=== PATIENT | female | born 1935 | race Caucasian/White ===

== ENCOUNTER → 2018-01-30 | Outpatient (CLI) | payer MEDICARE ==
[~2018-01-30] MED LIST: BUPIVACAINE 0.25% ONE; EPINEPHRINE 1 MG/ML, 1ML ONE; INDOCYANINE GREEN 25 MG VIAL ONE; ONDA4TAB7 PO; OXYC-302 PO; QUIN5TAB13 PO
[2018-01-30 16:15] LABS: BASOPHILS # (AUTO) 0.02 x10^3/uL (0-0.1); BASOPHILS % (AUTO) 0 % (0-1); EOSINOPHILS # (AUTO) 0.06 x10^3/uL (0-0.4); EOSINOPHILS % (AUTO) 1 % (1-7); LYMPHOCYTES # (AUTO) 1.49 x10^3/uL (1-3.4); LYMPHOCYTES % (AUTO) 22 % (22-44); MD NO; MEAN CORPUSCULAR HEMOGLOBIN 33.5 pg (27.0-34.8); MEAN CORPUSCULAR HGB CONC 33.7 g/dL (32.4-35.8); MEAN CORPUSCULAR VOLUME 99.5 fL (80-100); MEAN PLATELET VOLUME 8.9 fL (7.4-10.4); MONOCYTES # (AUTO) 0.33 x10^3/uL (0.2-0.8); MONOCYTES % (AUTO) 5 % (2-9); NEUTROPHILS # (AUTO) 4.94 x10^3/uL (1.8-6.8); NEUTROPHILS % (AUTO) 72 % (42-75); PLATELET COUNT 248 x10^3/uL (130-400); RED BLOOD COUNT 3.61 x10^6/uL (3.82-5.3); RED CELL DISTRIBUTION WIDTH 12.9 % (9.6-15.2)
[2018-01-30 16:25] LABS: INTERNATIONAL NORMALIZED RATIO 0.94 (0.93-1.1); PROTHROMBIN TIME 9.8 Seconds (9.6-11.5)
[2018-01-30 16:26] LABS: ALANINE AMINOTRANSFERASE 23 U/L (12-78); ALBUMIN 3.9 g/dL (3.4-5.0); ANION GAP 11 mmol/L (5-15); CHLORIDE 108 mmol/L (98-107); CREATININE 1.75 mg/dL (0.55-1.02)
[2018-01-30 16:29] LABS: ALKALINE PHOSPHATASE 127 U/L (45-117); BILIRUBIN,TOTAL 0.4 mg/dL (0.2-1.0); TOTAL PROTEIN 7.4 g/dL (6.4-8.2)
== END | disposition home or self-care (01) ==
LOC: MERGE 14:47 → STAR 14:47
PROVIDERS: ATTEND Specialist
DX: Z01.818 Encounter for other preprocedural examination (principal); M41.84 Other forms of scoliosis, thoracic region
CPT/HCPCS: 36415; 71046; 80053; 85025; 85610; 85730; 86304; 93005

== ENCOUNTER 2018-02-05 07:33 | Inpatient (IN) | payer MEDICARE ==
[~2018-02-05] VITALS: Ht 160 cm; Wt 53.8 kg
[~2018-02-05 07:33] MED LIST changes: +HEPARIN 1,000 UNITS/ML, 10ML ONE; -INDOCYANINE GREEN 25 MG VIAL ONE; -ONDA4TAB7 PO; -OXYC-302 PO
[2018-02-05] MEDS ORDERED: LACTATED RINGERS 1,000 ML IV SCH (07:52)
[2018-02-05] MEDS ORDERED: ONDANSETRON ODT 8 MG PO ONE (08:00)
[2018-02-05] MEDS ORDERED: ACETAMINOPHEN 500 MG TABLET PO ONE (08:00)
[2018-02-05] MEDS ORDERED: CEFAZOLIN 1,000 MG ONE ×2 (08:30)
[2018-02-05] MEDS ORDERED: PROPOFOL 10 MG/ML, 20ML ONE (08:30)
[2018-02-05] MEDS ORDERED: MIDAZOLAM 1 MG/ML, 2ML ONE (08:30)
[2018-02-05] MEDS ORDERED: FENTANYL PF 100 MCG/2ML ONE (08:30)
[2018-02-05] MEDS ORDERED: ROCURONIUM 10MG/ML,5ML ONE (08:31)
[2018-02-05] MEDS ORDERED: SUCCINYLCHOLINE 20 MG/ML, 10ML ONE (08:31)
[2018-02-05] MEDS ORDERED: LIDOCAINE-MPF 2% ,5ML ONE ×2 (08:31)
[2018-02-05] MEDS ORDERED: DEXAMETHASONE 4 MG/ML, 1ML ONE ×2 (08:36)
[2018-02-05] MEDS ORDERED: MORPHINE SULFATE 4 MG/ML, 1ML IVPush PRN (13:00)
[2018-02-05] MEDS ORDERED: MIDAZOLAM 1 MG/ML, 2ML IV PRN (13:00)
[2018-02-05] MEDS ORDERED: hydrALAzine 20 MG/ML, 1ML IV PRN (13:00)
[2018-02-05] MEDS ORDERED: EPHEDRINE 50 MG/ML, 1ML IVPush PRN (13:00)
[2018-02-05] MEDS ORDERED: LABETALOL 5MG/ML, 20ML IV PRN (13:00)
[2018-02-05] MEDS ORDERED: METOPROLOL 1 MG/ML, 5ML IV PRN (13:00)
[2018-02-05] MEDS ORDERED: LORazepam 2 MG/ML, 1ML IVPush PRN (13:00)
[2018-02-05] MEDS ORDERED: FENTANYL PF 100 MCG/2ML IV PRN (13:00)
[2018-02-05] MEDS ORDERED: OXYcodone 5 MG/5 ML ORAL.SOL UDC PO PRN (13:00)
[2018-02-05] MEDS ORDERED: PROCHLORPERAZINE 5 MG/ML, 2ML IV PRN (13:00)
[2018-02-05] MEDS ORDERED: MEPERIDINE/PF 25MG/0.5ML IVPush PRN (13:00)
[2018-02-05] MEDS ORDERED: ALBUTEROL SULFATE 2.5 MG/3 ML NPPB PRN (13:00)
[2018-02-05] MEDS ORDERED: NEOSTIGMINE 1 MG/ML, 10ML ONE (13:09)
[2018-02-05] MEDS ORDERED: GLYCOPYRROLATE 0.4 MG/2 ML, 2ML ONE (13:09)
[2018-02-05] MEDS ORDERED: HYDROmorphone 2 MG/ML, 1ML ONE (13:35)
[2018-02-05] MEDS ORDERED: OXYcodone 5 MG/5 ML ORAL.SOL UDC ONE (13:36)
[2018-02-05] MEDS: HYDROmorphone 1 MG/ML, 1ML IV PRN ×5 (13:40→14:39)
[2018-02-05] MEDS ORDERED: hydrALAzine 20 MG/ML, 1ML ONE (13:44)
[2018-02-05] MEDS ORDERED: ONDANSETRON 2MG/ML, 2ML ONE (14:36)
[2018-02-05] MEDS ORDERED: ONDANSETRON 2MG/ML, 2ML IVPush ONE (15:00)
[2018-02-05] MEDS ORDERED: ONDANSETRON 2MG/ML, 2ML IV PRN (18:30)
[2018-02-05] MEDS: D5%-0.45NACL+KCL 20MEQ 1,000 ML IV SCH (19:11)
[2018-02-05 19:48] VITALS: BP 126/72
[2018-02-05] MEDS: SODIUM CHLORIDE FLUSH 10ML SYR IVF SCH (20:25)
[2018-02-05] MEDS: OXYcodone/APAP 5/325MG TABLET PO PRN (23:03)
[2018-02-05 23:58] VITALS: BP 128/75
[2018-02-06] MEDS ORDERED: OXYcodone/APAP 5/325MG TABLET PO ONE (03:00)
[2018-02-06 04:10] VITALS: BP 144/69
[2018-02-06 05:43] LABS: ANION GAP 8 mmol/L (5-15); CALCIUM 8.4 mg/dL (8.5-10.1); CHLORIDE 106 mmol/L (98-107)
[2018-02-06 05:44] LABS: MEAN CORPUSCULAR HEMOGLOBIN 33.7 pg (27.0-34.8); MEAN PLATELET VOLUME 8.8 fL (7.4-10.4); PLATELET COUNT 216 x10^3/uL (130-400); RED BLOOD COUNT 2.97 x10^6/uL (3.82-5.3); RED CELL DISTRIBUTION WIDTH 12.6 % (9.6-15.2)
[2018-02-06 05:46] LABS: CREATININE 1.53 mg/dL (0.55-1.02)
[2018-02-06 06:03] LABS: BASOPHILS # (AUTO) 0.01 x10^3/uL (0-0.1); BASOPHILS % (AUTO) 0 % (0-1); EOSINOPHILS # (AUTO) 0.01 x10^3/uL (0-0.4); EOSINOPHILS % (AUTO) 0 % (1-7); LYMPHOCYTES # (AUTO) 1.01 x10^3/uL (1-3.4); LYMPHOCYTES % (AUTO) 8 % (22-44); MD SCAN; MONOCYTES # (AUTO) 0.88 x10^3/uL (0.2-0.8); MONOCYTES % (AUTO) 7 % (2-9); NEUTROPHILS # (AUTO) 11.33 x10^3/uL (1.8-6.8); NEUTROPHILS % (AUTO) 86 % (42-75)
[2018-02-06 07:45] VITALS: BP 163/80
[2018-02-06] MEDS: SODIUM CHLORIDE FLUSH 10ML SYR IVF SCH (09:00)
[2018-02-06] MEDS: D5%-0.45NACL+KCL 20MEQ 1,000 ML IV SCH (11:10)
[2018-02-06] MEDS ORDERED: OXYC-302 PO (12:03)
[2018-02-06] MEDS ORDERED: ONDA4TAB7 PO (12:04)
[2018-02-06 13:17] VITALS: BP 125/74
[2018-02-06] MEDS: OXYcodone/APAP 5/325MG TABLET PO PRN (13:49)
== END 2018-02-06 16:24 | disposition home or self-care (01) | DRG 742 ==
LOC: ORIP 07:34 → 4NOR 17:54
PROVIDERS: ADMIT Specialist; ATTEND Specialist
PROC: 0UT24ZZ Resection of Bilateral Ovaries, Percutaneous Endoscopic Approach (ICD-10-PCS; 2018-02-05)
PROC: 0UT74ZZ Resection of Bilateral Fallopian Tubes, Percutaneous Endoscopic Approach (ICD-10-PCS; 2018-02-05)
PROC: 0UT94ZZ Resection of Uterus, Percutaneous Endoscopic Approach (ICD-10-PCS; 2018-02-05)
PROC: 8E0W4CZ Robotic Assisted Procedure of Trunk Region, Percutaneous Endoscopic Approach (ICD-10-PCS; principal; 2018-02-05 15:30)
DX: D27.0 Benign neoplasm of right ovary (principal); N17.0 Acute kidney failure with tubular necrosis; K66.0 Peritoneal adhesions (postprocedural) (postinfection); H50.00 Unspecified esotropia; M19.90 Unspecified osteoarthritis, unspecified site; Z90.49 Acquired absence of other specified parts of digestive tract; Z80.9 Family history of malignant neoplasm, unspecified; Z87.891 Personal history of nicotine dependence; Z99.3 Dependence on wheelchair
CPT/HCPCS: 36415; 74018; 80048; 85025; 86850; 86900; 88112; 88305; 88307; G0378; J0171; J0690; J1100; J1170; J1644; J2250; J2405; J2704; J2710; J3010; J3490; Q0162; J0330; J0360; J3480; J7120